=== PATIENT | female | born 1945 | race Caucasian/White ===

== ENCOUNTER 2017-11-05 13:34 | Inpatient (IN) | payer MEDICARE, MEDICAID ==
[~2017-11-05] VITALS: Ht 154.9 cm; Wt 65.8 kg
--- NOTE | 2017-11-05 15:03 | Diagnostic Imaging Report ---
Indication: Reason For Exam: SOB, chest pain Technique: One view of the chest Comparison: none Findings: The heart is enlarged. There is bilateral interstitial edema. No focal airspace consolidation. There may be trace pleural fluid on the right Impression: Cardiomegaly. Bilateral interstitial edema and possible small right pleural effusion
[2017-11-05 15:18] VITALS: BP 238/91
[2017-11-05 15:26] LABS: BASOPHILS % (AUTO) 0.3 % (0.0-2.0); EOSINOPHILS % (AUTO) 0.3 % (0.0-3.0); HEMATOCRIT 40.1 % (37.0-47.0); HEMOGLOBIN 12.3 G/DL (12.0-16.0); LYMPHOCYTES % (AUTO) 12.7 % (20.0-45.0); MEAN CORPUSCULAR VOLUME 86 FL (80-99); MONOCYTES % (AUTO) 6.3 % (1.0-10.0); NEUTROPHILS % (AUTO) 80.4 % (45.0-75.0); PLATELET COUNT 264 K/UL (150-450); RED BLOOD COUNT 4.66 M/UL (4.20-5.40); RED CELL DISTRIBUTION WIDTH 14.8 % (11.6-14.8); WHITE BLOOD COUNT 10.1 K/UL (4.8-10.8)
[2017-11-05 15:43] LABS: ANION GAP 6 mmol/L (5-15); BLOOD UREA NITROGEN 16 mg/dL (7-18); CALCIUM 8.5 MG/DL (8.5-10.1); CARBON DIOXIDE 29 MMOL/L (21-32); CHLORIDE 105 MMOL/L (98-107); CREATININE 0.7 MG/DL (0.55-1.30); POTASSIUM 4.8 MMOL/L (3.5-5.1); SODIUM 140 MMOL/L (136-145)
[2017-11-05 15:57] LABS: ALANINE AMINOTRANSFERASE 41 U/L (12-78); ALBUMIN 3.7 G/DL (3.4-5.0); ALBUMIN/GLOBULIN RATIO 0.9 (1.0-2.7); ALKALINE PHOSPHATASE 109 U/L (46-116); ASPARTATE AMINO TRANSFERASE 38 U/L (15-37); BILIRUBIN,TOTAL 0.8 MG/DL (0.2-1.0); CKMB 2.3 NG/ML (0.0-3.6); CREATINE KINASE 121 U/L (26-308)
[2017-11-05 16:07] LABS: APPEARANCE,URINE CLEAR; BILIRUBIN, URINE NEGATIVE (NEGATIVE); COLOR,URINE PALE YELLOW; GLUCOSE, URINE (UA) NEGATIVE (NEGATIVE); KETONES,URINE NEGATIVE (NEGATIVE); LEUKOCYTE ESTERASE ,URINE NEGATIVE (NEGATIVE); NITRITE,URINE NEGATIVE (NEGATIVE); PH,URINE 8 (4.5-8.0); PROTEIN,URINE NEGATIVE (NEGATIVE); UROBILINOGEN,URINE NORMAL MG/DL (0.0-1.0)
[2017-11-05 16:50] VITALS: BP 217/86
[2017-11-05] MEDS ORDERED: Sodium Chloride 500ML 500 ML IV ONE (17:30)
[2017-11-05 18:14] VITALS: BP 138/44
[2017-11-05 19:09] VITALS: BP 154/50
--- NOTE | 2017-11-05 19:30 | Emergency Room Report ---
History of Present Illness General Chief Complaint: General Complaint Source: Patient, EMS Present Illness HPI 72-year-old female presents ED complaining of shortness of breath x2 days. Daughter at bedside states that patient has history of heart disease and hypertension. Blood pressure in triage is elevated. States she is compliant with her medications. Denies chest pain. Denies fevers chills. Denies cough. No other aggravating relieving factors. Denies any other associated symptoms Allergies: Coded Allergies: No Known Allergies (Unverified , 11/05/17) Patient History Past Medical History: HTN Past Surgical History: none Pertinent Family History: none Social History: Denies: smoking, alcohol use, drug use Now: No Immunizations: UTD Reviewed Nursing Documentation: PMH: Agreed, PSxH: Agreed Nursing Documentation-PMH Past Medical History: No History, Except For Hx Cardiac Problems: Yes - 6 STENTS Hx Hypertension: Yes Review of Systems All Other Systems: negative except mentioned in HPI Physical Exam Vital Signs Date Time Temp Pulse Resp B/P (MAP) Pulse Ox O2 Delivery O2 Flow Rate FiO2 11/05/17 13:37 97.9 97 20 247/106 95 Room Air Sp02 EP Interpretation: reviewed, normal General Appearance: no apparent distress, alert, GCS 15, non-toxic Head: normocephalic, atraumatic Eyes: bilateral eye normal inspection, bilateral eye PERRL ENT: hearing grossly normal, normal pharynx, no angioedema, normal voice Neck: full range of motion, supple/symm/no masses Respiratory: chest non-tender, lungs clear, normal breath sounds, speaking full sentences Cardiovascular #1: regular rate, rhythm, no edema Cardiovascular #2: 2+ carotid (R), 2+ carotid (L), 2+ radial (R), 2+ radial (L) , 2+ dorsalis pedis (R), 2+ dorsalis pedis (L) Gastrointestinal: normal bowel sounds, non tender, soft, non-distended, no guarding, no rebound Rectal: deferred Genitourinary: normal inspection, no CVA tenderness Musculoskeletal: back normal, gait/station normal, normal range of motion, non- tender, swelling - 1+ pitting edema b/l LEs Neurologic: alert, oriented x3, responsive, motor strength/tone normal, sensory intact, speech normal Psychiatric: judgement/insight normal, memory normal, mood/affect normal, no suicidal/homicidal ideation Reflexes: 3+ bicep (R), 3+ bicep (L), 3+ tricep (R), 3+ tricep (L), 3+ knee (R) , 3+ knee (L) Skin: normal color, no rash, warm/dry, well hydrated Lymphatic: no adenopathy Medical Decision Making Diagnostic Impression: Primary Impression: CHF exacerbation Qualified Codes: I50.9 - Heart failure, unspecified Additional Impression: Hypertensive urgency ER Course Hospital Course 72-year-old female presents ED complaining of shortness of breath, hypertensive Differential diagnoses include: MS/unstable angina, contusion, muscle strain, PTX, rib fracture Clinical course Patient placed on stretcher. on quality assurance monitor body. After initial history and physical I ordered labs, EKG, chest x-ray, ASA, b/l LE dopplers labs reviewed- no leukocytosis, hemoglobin/hematocrit stable, electrolytes ok, troponins negative, BNP elevated Chest x-ray- CHF, congestion BP elevate - given hydralazine. Lasix given. Case discussed with Dr. Clay and he agreed to accept the patient to his service for further care and support I. I feel this is a highly complex case requiring extensive working including EKG/Rhythm strip, Xray/CT/US, Blood/urine lab work, repeat exams while in ED, and administration of strong opiates/narcotics for pain control, admission to hospital or close patient follow up. Diagnosis - CHF exacerbation, hypertensive urgency admitted to telemetry in serious condition Labs Test 11/05/17 15:00 White Blood Count 10.1 K/UL (4.8-10.8) Red Blood Count 4.66 M/UL (4.20-5.40) Hemoglobin 12.3 G/DL (12.0-16.0) Hematocrit 40.1 % (37.0-47.0) Mean Corpuscular Volume 86 FL (80-99) Mean Corpuscular Hemoglobin 26.4 PG (27.0-31.0) Mean Corpuscular Hemoglobin Concent 30.7 G/DL (32.0-36.0) Red Cell Distribution Width 14.8 % (11.6-14.8) Platelet Count 264 K/UL (150-450) Mean Platelet Volume 7.6 FL (6.5-10.1) Neutrophils (%) (Auto) 80.4 % (45.0-75.0) Lymphocytes (%) (Auto) 12.7 % (20.0-45.0) Monocytes (%) (Auto) 6.3 % (1.0-10.0) Eosinophils (%) (Auto) 0.3 % (0.0-3.0) Basophils (%) (Auto) 0.3 % (0.0-2.0) Urine Color Pale yellow Urine Appearance Clear Urine pH 8 (4.5-8.0) Urine Specific Garber 1.010 (1.005-1.035) Urine Protein Negative (NEGATIVE) Urine Glucose (UA) Negative (NEGATIVE) Urine Ketones Negative (NEGATIVE) Urine Occult Blood 2+ (NEGATIVE) Urine Nitrite Negative (NEGATIVE) Urine Bilirubin Negative (NEGATIVE) Urine Urobilinogen Normal MG/DL (0.0-1.0) Urine Leukocyte Esterase Negative (NEGATIVE) Urine RBC 2-4 /HPF (0 - 2) Urine WBC 0-2 /HPF (0 - 2) Urine Squamous Epithelial Cells Few /LPF (NONE/OCC) Urine Bacteria Few /HPF (NONE) Sodium Level 140 MMOL/L (136-145) Potassium Level 4.8 MMOL/L (3.5-5.1) Chloride Level 105 MMOL/L (98-107) Carbon Dioxide Level 29 MMOL/L (21-32) Anion Gap 6 mmol/L (5-15) Blood Urea Nitrogen 16 mg/dL (7-18) Creatinine 0.7 MG/DL (0.55-1.30) Estimat Glomerular Filtration Rate mL/min (>60) Glucose Level 133 MG/DL (74-106) Calcium Level 8.5 MG/DL (8.5-10.1) Total Bilirubin 0.8 MG/DL (0.2-1.0) Aspartate Amino Transf (AST/SGOT) 38 U/L (15-37) Alanine Aminotransferase (ALT/SGPT) 41 U/L (12-78) Alkaline Phosphatase 109 U/L (46-116) Total Creatine Kinase 121 U/L (26-308) Creatine Kinase MB 2.3 NG/ML (0.0-3.6) Creatine Kinase MB Relative Index 1.9 Troponin I 0.032 ng/mL (0.000-0.056) Pro-B-Type Natriuretic Peptide 1933 pg/mL (0-125) Total Protein 8.0 G/DL (6.4-8.2) Albumin 3.7 G/DL (3.4-5.0) Globulin 4.3 g/dL Albumin/Globulin Ratio 0.9 (1.0-2.7) EKG Diagnostic Results Rate: normal Rhythm: NSR ST Segments: no acute changes ASA given to the pt in ED: No Rhythm Strip Diag. Results EP Interpretation: yes Rhythm: NSR, no PVC's, no ectopy Chest X-Ray Diagnostic Results Chest X-Ray Diagnostic Results : Chest X-Ray Ordered: Yes # of Views/Limited/Complete: 1 View Indication: Shortness of Breath EP Interpretation: Yes Interpretation: no pneumothorax, no acute cardiopulmonary disease, other - cardiomegaly. congestion Impression: Other - chf Electronically Signed by: Electronically signed by Elliot Boyle MD Last Vital Signs Date Time Temp Pulse Resp B/P (MAP) Pulse Ox O2 Delivery O2 Flow Rate FiO2 11/05/17 19:09 84 19 154/50 99 Room Air 11/05/17 18:14 97.9 Status: improved Disposition: ADMITTED INPATIENT Condition: Serious Referrals: [facility],REFERRING (PCP) ELLIOT BOYLE M.D. Nov 05, 2017 19:30
[2017-11-05 21:09] VITALS: BP 170/60
[2017-11-05 22:34] VITALS: BP 163/55
[2017-11-05] MEDS ORDERED: ASPIRIN81 MG ORAL (22:45)
[2017-11-05] MEDS ORDERED: CARVEDILOL6.25 MG ORAL (22:45)
[2017-11-05] MEDS ORDERED: LISINOPRIL5 MG ORAL (22:45)
[2017-11-05] MEDS ORDERED: ATORVASTATIN CA20 MG ORAL (22:45)
[2017-11-05] MEDS ORDERED: HYDRALAZINE HCL10 MG ORAL (22:45)
[2017-11-05] MEDS ORDERED: BRILINTA90 MG PO (22:45)
[2017-11-06] VITALS (7 sets, daily range): BP systolic 143–202; BP diastolic 66–92
[2017-11-06] MEDS: HydrALAZINE 25mg tab ORAL SCH ×3 (04:39→22:24)
[2017-11-06] MEDS: Aspirin Baby 81mg ORAL SCH (08:16)
[2017-11-06] MEDS: Carvedilol 12.5mg tab ORAL SCH ×2 (08:16→21:28)
[2017-11-06] MEDS ORDERED: Lisinopril 20mg tab ORAL SCH (09:00)
[2017-11-06 10:53] LABS: ALANINE AMINOTRANSFERASE 36 U/L (12-78); ALBUMIN 3.5 G/DL (3.4-5.0); ALBUMIN/GLOBULIN RATIO 0.8 (1.0-2.7); ALKALINE PHOSPHATASE 101 U/L (46-116); ANION GAP 8 mmol/L (5-15); ASPARTATE AMINO TRANSFERASE 26 U/L (15-37); BILIRUBIN,TOTAL 0.9 MG/DL (0.2-1.0); BLOOD UREA NITROGEN 18 mg/dL (7-18); CARBON DIOXIDE 30 MMOL/L (21-32); CHLORIDE 103 MMOL/L (98-107); CHOLESTEROL 155 MG/DL (< 200); HDL CHOLESTEROL 68 MG/DL (40-60); POTASSIUM 3.4 MMOL/L (3.5-5.1); SODIUM 141 MMOL/L (136-145); TRIGLYCERIDES 48 MG/DL (30-150)
--- NOTE | 2017-11-06 12:30 | History and Physical Report ---
DATE OF ADMISSION: 11/05/2017 ADMITTING PHYSICIAN: Janes Clay M.D. HISTORY & PHYSICAL REASON FOR ADMISSION: Malignant hypertension/hypertensive urgency with congestive heart failure. HISTORY OF PRESENT ILLNESS: This 72-year-old female presented to the emergency room with her daughter complaining of several days of progressive shortness of breath. She has had decreasing exercise capacity but no chest pain. She has been compliant with medications and diet. She has not had any upper respiratory symptoms. In the emergency room, her initial blood pressure was 247/106 with a heart rate of 97 and respiratory rate of 20. PAST MEDICAL HISTORY: Coronary artery disease, history of multi-vessel coronary stenting, hypertension. ALLERGIES: None. FAMILY HISTORY: Noncontributory. SOCIAL HISTORY: Negative for smoking, alcohol, or substance abuse. MEDICATIONS: Reviewed and reconciled. REVIEW OF SYSTEMS: No history of diabetes or thyroid disorder. No history of seizure or stroke. Unknown cholesterol level. No change in bowel habits. No history of kidney failure. No history of asthma or blood clots in the legs. No loss of vision or hearing. No recent cough, cold, upper respiratory symptoms, nausea, vomiting, diarrhea or abdominal pain. PHYSICAL EXAMINATION: VITAL SIGNS: As noted above. HEENT: Conjunctivae pink. Sclerae are anicteric. Oropharynx clear. Mucous membranes moist. NECK: Supple. Jugular venous pressure elevated. LUNGS: With bilateral rales. No wheezes. CARDIAC: Regular rhythm and rate. Normal S1, S2 with a fourth heart sound. ABDOMEN: Soft, nontender. No guarding or rebound. No bruits. EXTREMITIES: Good pulses. EXTREMITIES: Trace edema. LABORATORY AND DIAGNOSTIC DATA: Chest x-ray reveals cardiomegaly with pulmonary venous congestion and small right effusion. EKG is notable for sinus rhythm, low voltage. No acute pathology. Troponin 0.032. Pro-natriuretic peptide 1933. Albumin 3.7. Chemistry panel within normal limits. IMPRESSION: 1. Hypertensive urgency. 2. Microscopic hematuria. 3. Ischemic cardiomyopathy with stable angina and prior history of multi-vessel coronary stenting. 4. Acute on chronic diastolic congestive heart failure. PLAN: 1. Cardiac monitoring. 2. Up titration of antihypertensive. 3. Continue anti-platelet, dual anti-platelet therapy. 4. Check lipid panel. 5. Diuresis with intravenous loop diuretic. 6. DVT prophylaxis. 7. Subcutaneous heparin once systolic pressures below 170. Janes Clay M.D. DR: SHEELA JOB#: [id number] CC: ANDREW
[2017-11-06] MEDS ORDERED: Atorvastatin 20mg tab ORAL SCH (21:00)
[2017-11-07] VITALS: BP 148/69
--- NOTE | 2017-11-07 01:00 | Progress Note ---
DATE: 11/06/2017 CARDIOLOGY PROGRESS NOTE SUBJECTIVE: The patient feels much better. Less short of breath. She wants to go home, but still has high blood pressure reading. Case was reviewed with her daughter and she was made aware of the reasons for continued hospitalization. OBJECTIVE: VITAL SIGNS: Blood pressure 160/91, pulse 73, respiratory rate 19, and afebrile. NECK: Supple. Jugular venous pressure elevated. LUNGS: With few rales. CARDIAC: Regular rhythm and rate. Normal S1 and S2 with a fourth heart sound. ABDOMEN: Soft. EXTREMITIES: With 1+ dependent edema. IMAGING STUDIES: Chest x-ray yesterday revealed bilateral interstitial changes and small right pleural effusion. LABORATORY DATA: Potassium 3.4. Pro-natriuretic peptide 1800. TSH 7.1. IMPRESSION: 1. Acute on chronic diastolic congestive heart failure. 2. Hypertensive urgency. 3. Pleural effusion. 4. Hypokalemia. 5. Hypothyroidism. 6. Favorable lipid panel. PLAN: 1. Add thyroid replacement. 2. Continue IV diuresis. 3. Advanced antihypertensives. 4. Discharge once euvolemic. 5. Salt restriction stressed. Janes Clay M.D. DR: MARINO JOB#: [id number] CC:
[2017-11-07 04:00] VITALS: BP 147/71
[2017-11-07] MEDS: HydrALAZINE 25mg tab ORAL SCH (05:37)
[2017-11-07 08:00] VITALS: BP 149/76
--- NOTE | 2017-11-07 08:45 | Progress Note ---
DATE: 11/07/2017 CARDIOLOGY PROGRESS NOTE SUBJECTIVE: The patient without chest pain. She has no shortness of breath, but is unable to lie completely flat. OBJECTIVE: VITAL SIGNS: Blood pressure 145/75, pulse 66, respiratory rate 18, and oxygen saturation on room air is 97%. LUNGS: Good breath sounds. No rales. HEART: Regular rhythm and rate. Normal S1, S2 with a fourth heart sound. ABDOMEN: Soft. EXTREMITIES: Trace edema. LABORATORY DATA: Labs are pending. IMPRESSION: 1. Acute on chronic diastolic congestive heart failure, now clinically compensated. 2. Hypertensive urgency, resolved. 3. Hypertensive heart disease with controlled blood pressure. 4. Coronary artery disease, status post coronary stenting. PLAN: 1. Transition from IV to oral diuretics. 2. Salt restriction. 3. Maintain current cardiovascular regimen. 4. Maintain anti-platelet and anti-lipid drugs. 5. Outpatient followup. Janes Clay M.D. DR: SHEELA JOB#: [id number] CC:
[2017-11-07 08:56] VITALS: BP 143/83
[2017-11-07] MEDS: Aspirin Baby 81mg ORAL SCH (08:56)
[2017-11-07] MEDS: Carvedilol 12.5mg tab ORAL SCH (08:56)
[2017-11-07] MEDS ORDERED: Lisinopril 20mg tab ORAL SCH (09:00)
[2017-11-07] MEDS ORDERED: BRILINTA 90 MG ORAL SCH (09:00)
[2017-11-07] MEDS ORDERED: FUROSEMIDE80 MG ORAL (11:36)
[2017-11-07] MEDS ORDERED: LISINOPRIL20 MG ORAL (11:36)
[2017-11-07] MEDS ORDERED: COREG12.5 MG ORAL (11:38)
[2017-11-07] MEDS ORDERED: LIPITOR10 MG ORAL (11:38)
[2017-11-07] MEDS ORDERED: POTASSIUM CHLO10 MEQ ORAL (11:38)
[2017-11-07] MEDS ORDERED: PLAVIX75 MG ORAL (11:40)
[2017-11-07] MEDS ORDERED: HYDRALAZINE HCL25 M1 ORAL (11:40)
[2017-11-07] MEDS ORDERED: Flu Vaccine Quadrivalent 0.5ml IM ONE (11:45)
[2017-11-07] MEDS ORDERED: Pneumococcal Vaccine 25mcg/0.5ml IM ONE (11:45)
--- NOTE | 2017-11-11 10:47 | Discharge Summary ---
Discharge Summary Hospital Course Date of Admission Nov 05, 2017 at 19:30 Date of Discharge Nov 07, 2017 at 12:10 Admitting Diagnosis sob/hpertensive urgency HPI Katherine Dubois is a 72 year old female who was admitted on Nov 05, 2017 at 19: 30 for Shortness Of Breath/Hypertensive Urgency Hospital Course dc summary #[id number] Discharge Medications Continued Medications: Aspirin* (Aspirin*) 81 Mg Tab.chew 81 MG ORAL DAILY, TAB Atorvastatin Calcium* (Lipitor*) 10 Mg Tablet 10 MG ORAL DAILY, #30 TAB 0 Refills Carvedilol (Coreg) 12.5 Mg Tablet 12.5 MG ORAL EVERY 12 HOURS, TAB Clopidogrel Bisulfate* (Plavix*) 75 Mg Tablet 75 MG ORAL DAILY, TAB Furosemide (Furosemide) 80 Mg Tablet 20 MG ORAL DAILY, TAB Hydralazine Hcl* (Hydralazine Hcl*) 25 Mg Tablet 25 MG ORAL EVERY 8 HOURS, TAB 0 Refills Lisinopril (Lisinopril*) 20 Mg Tablet 40 MG ORAL DAILY, TAB Potassium Chloride* (K-Dur*) 10 Meq Capsule.er 10 MEQ ORAL DAILY, #7 TAB 0 Refills Discharge Condition Upon Discharge: stable Discharge Disposition Patient was discharged to Home (01) Discharge Diagnoses: Discharge Instructions Discharge Instructions Special Instructions I have been assigned to complete a D/C Summary on this account. I was not involved in the patient management Jamila Jaramillo NP (Vanchtein) Nov 11, 2017 10:47
--- NOTE | 2017-11-11 19:45 | Discharge Summary 2 SIG ---
DATE OF ADMISSION: 11/05/2017 DATE OF DISCHARGE: 11/07/2017 REASON FOR ADMISSION: 72-year-old female with past medical history of hypertension, coronary artery disease, status post coronary stents , presented to emergency department with shortness of breath for two days. She denied chest pain. Denied fever, chills and cough. She reported compliance with her medications. Upon evaluation, blood pressure 247/106 ; pulse oximetry was 95% on room air. No leukocytosis. Stable hemoglobin and hematocrit. Urinalysis with no evidence of urinary tract infection. Stable electrolytes and renal parameters. Troponin negative. Pro BNP- 1933. Chest x-ray revealed congestive heart failure and pulmonary congestion. The patient was treated for elevated blood pressure with hydralazine and Lasix was given intravenously. The patient admitted with diagnosis of congestive heart failure exacerbation and hypertensive urgency. HOSPITAL COURSE: The patient admitted to telemetry floor. The patient started on up titration of antihypertensive medication regimen. Dual antiplatelet therapy was continued. Lipid panel was stable. Statin was continued. Diuresis iwith intravenous furosemide initiated. Renal parameters, electrolytes and volume status were closely monitored. DVT prophylaxis provided. Supplemental oxygen provided as needed to keep saturation above 92%. Pulse oximetry stable on the room air. ProBNP checked with small trend down to 1810. The patient however clinically was improving. Potassium was replaced. Intravenous diuretic changed to oral. Blood pressure was controlled with new up titrating antihypertensive regimen of beta-chasity, ARMAND inhibitor, hydralazine and diuretic. The patient was advised on salt restriction diet and compliance with medications. Urinalysis revealed evidence of microscopic hematuria, +2 blood. Hemoglobin and hematocrit were stable. The patient was recommended to follow up with the primary medical doctor for workup for microscopic hematuria.The patient was stable for discharge. FINAL DIAGNOSES: 1. Hypertensive urgency. 2. Acute on chronic diastolic heart failure. 3. Hypertensive heart disease. 4. Ischemic cardiomyopathy with stable angina. 5. History of coronary artery disease status post coronary stents. 6. Microscopic hematuria. 7. Hypokalemia. DISCHARGE MEDICATIONS: See medication reconciliation list. DISCHARGE INSTRUCTIONS: The patient to follow up with the primary medical doctor next week. Janes Danna, M.D. I have been assigned to dictate discharge summary on this account and I was not involved in the patient's management. Jamila Jaramillo (Vanchtein) NTyreePTyree DR: FARNAZ JOB#: [id number] CC: ANDREW
--- NOTE | 2017-11-16 21:47 | Cardiology Report ---
APPROVED REPORT EXAM: Two-dimensional and M-mode echocardiogram with Doppler and color Doppler. INDICATION Congestive Heart Failure M-Mode DIMENSIONS IVSd1.2 (0.7-1.1cm)Left Atrium (MM)4.6 (1.6-4.0cm) LVDd4.8 (3.5-5.6cm)Aortic Root2.7 (2.0-3.7cm) PWd1.4 (0.7-1.1cm)Aortic Cusp Exc.1.4 (1.5-2.0cm) IVSs1.6 cm LVDs4.1 (2.5-4.0cm) PWs1.9 cm Minimum left ventricular global hypokenisis. Left ventricular ejection fraction estimated to be 50%. mild left ventricular hypertrophy by 2-D. No evidence of pericardial effusion. Mild left atrial enlargement. Focal aortic valve sclerosis with adequate cusp excursion. Thickened mitral valve leaflets with normal excursion. Mitral annulus and aortic root calcification. Pulmonic valve not well visualized. Normal tricuspid valve structure. IVC at normal size with physiologic collapse. A color flow and spectral Doppler study was performed and revealed: Mild aortic regurgitation. mild mitral regurgitation. Mitral inflow velocities indicates possible pseudo normalization pattern implying moderately elevated left atrial pressure (Grade II ). Trace tricuspid regurgitation. Tricuspid systolic velocities suggests peak right ventricular systolic pressure of 23 mmHg . mild Pulmonic regurgitation present.
--- NOTE | 2017-11-17 00:13 | Cardiology Report ---
APPROVED REPORT EKG Measurement Heart [id number] Normal sinus rhythm Possible Left atrial enlargement Nonspecific ST and T wave abnormality Prolonged QT Abnormal ECG
== END 2017-11-07 12:10 | disposition home or self-care (01) | DRG 292 ==
LOC: EMR 14:07 → 2E 19:30 → EDBEDREQ 22:23
DX: I11.0 Hypertensive heart disease with heart failure (principal); J90 Pleural effusion, not elsewhere classified; R31.29 Other microscopic hematuria; I50.33 Acute on chronic diastolic (congestive) heart failure; I25.5 Ischemic cardiomyopathy; I25.118 Atherosclerotic heart disease of native coronary artery with other forms of angina pectoris; I16.0 Hypertensive urgency; Z23 Encounter for immunization; I25.119 Atherosclerotic heart disease of native coronary artery with unspecified angina pectoris; E87.6 Hypokalemia; E03.9 Hypothyroidism, unspecified; Z95.5 Presence of coronary angioplasty implant and graft
CPT/HCPCS: 36415; 71010; 80053; 80061; 81003; 82550; 82553; 83880; 84443; 84484; 85025; 90630; 90732; 93005; 93306; 99285; J2405; J8499